=== PATIENT | female | born 1985 | race African-American/Black ===

== ENCOUNTER 2022-03-23 20:26 | Inpatient (IN) | payer SELFPAY ==
[~2022-03-23] VITALS: Ht 175.3 cm; Wt 100.0 kg
[2022-03-23] MEDS ORDERED: FAMOTIDINE (10MG/ML) 2ML VL IV ONE (21:00)
[2022-03-23] MEDS ORDERED: methylPREDNISolone SOD SUCC 125 MG/2 ML VL IV ONE (21:00)
[2022-03-23] MEDS ORDERED: diphenhdrAMINE HCL 50 MG/1 ML VL IV ONE (21:00)
[2022-03-23] MEDS ORDERED: EPINEPHrine HCL 1 MG/1 ML AMP IM ONE (22:15)
[2022-03-23 23:12] LABS: Basophils # (auto) 0 10 ^3/uL (0-0.2); Basophils % (auto) 0.3 % (0.0-2.0); Eosinophils # (auto) 0.1 10 ^3/uL (0-0.8); Eosinophils % (auto) 1.4 % (0.0-7.0); Hematocrit 38.1 % (36.0-46.0); Hemoglobin 12.7 g/dL (12.2-16.2); Lymphocytes # (auto) 0.8 10 ^3/uL (0.4-5.4); Lymphocytes % (auto) 14.4 % (10.0-50.0); Mean Corpuscular Hemoglobin 32.2 pg (28.0-32.0); Mean Corpuscular Hgb Conc. 33.4 g/dL (32.0-36.0); Mean Corpuscular Volume 96.5 fL (80.0-100.0); Monocytes # (auto) 0.3 10 ^3/uL (0-1.3); Monocytes % (auto) 4.9 % (0.0-12.0); Neutrophils # (auto) 4.5 10 ^3/uL (1.6-8.6); Red Blood Cells 3.94 10^6/uL (4.0-5.20); Red Cell Distribution Width 13.9 % (11.8-14.3); White Blood Cell 5.7 10^3/uL (4.4-10.8)
[2022-03-23 23:29] LABS: Albumin 3.3 g/dL (3.4-5.0); Calcium 8.7 mg/dL (8.5-10.1); Potassium 4.5 mmol/L (3.5-5.1)
[2022-03-23 23:37] LABS: BUN/Creatinine Ratio 19.2; Bilirubin, Total 0.2 mg/dL (0.2-1.0); Total Protein 7.4 g/dL (6.4-8.2)
[2022-03-24] MEDS ORDERED: DOCUSATE SOD 100 MG CAP PO PRN
[2022-03-24] MEDS ORDERED: ONDANSETRON HCL 4 MG/2 ML VIAL IV PRN
[2022-03-24] MEDS ORDERED: diphenhdrAMINE HCL 50 MG/1 ML VL IM PRN
[2022-03-24] MEDS ORDERED: HYDROcodone-ACET 5/325MG TAB PO PRN
[2022-03-24] MEDS ORDERED: ALUM & MAG HYDROX-SIMETH LIQ(MAALOX) 30 ML PO PRN
[2022-03-24] MEDS ORDERED: ACETAMINOPHEN 325 MG TAB PO PRN
[2022-03-24] MEDS ORDERED: LORazepam 0.5 MG TAB PO PRN
[2022-03-24] MEDS ORDERED: hydrALAZINE HCL 25 MG TAB PO PRN (05:45)
[2022-03-24 06:00] LABS: Basophils # (auto) 0 10 ^3/uL (0-0.2); Basophils % (auto) 0.1 % (0.0-2.0); Eosinophils # (auto) 0 10 ^3/uL (0-0.8); Hemoglobin 13.6 g/dL (12.2-16.2); Lymphocytes # (auto) 0.5 10 ^3/uL (0.4-5.4); Lymphocytes % (auto) 9.5 % (10.0-50.0); Mean Corpuscular Hemoglobin 32.7 pg (28.0-32.0); Mean Corpuscular Volume 96.1 fL (80.0-100.0); Monocytes # (auto) 0.1 10 ^3/uL (0-1.3); Monocytes % (auto) 1.2 % (0.0-12.0); Neutrophils # (auto) 4.6 10 ^3/uL (1.6-8.6); Neutrophils % (auto) 89.2 % (37.0-80.0); Red Blood Cells 4.16 10^6/uL (4.0-5.20); Red Cell Distribution Width 13.7 % (11.8-14.3); White Blood Cell 5.1 10^3/uL (4.4-10.8)
[2022-03-24 06:16] LABS: BUN/Creatinine Ratio 15.1; Calcium 9.1 mg/dL (8.5-10.1); Potassium 4.5 mmol/L (3.5-5.1)
[2022-03-24] MEDS ORDERED: METH4PAK PO (09:10)
[2022-03-24] MEDS ORDERED: AML5T PO (09:10)
[2022-03-24] MEDS ORDERED: amLODIPine BESYLATE 5 MG TAB PO ONE (09:15)
[2022-03-24] MEDS ORDERED: methylPREDNISolone SOD SUCC 40 MG/ML VL IV ONE (09:15)
[2022-03-24] MEDS ORDERED: FAMOTIDINE 20 MG TAB PO ONE (09:15)
[2022-03-24] MEDS ORDERED: diphenhdrAMINE HCL 50 MG/1 ML VL IM ONE (09:15)
[2022-03-24 10:00] VITALS: BP 150/81
[2022-03-24] MEDS ORDERED: hydrALAZINE HCL 25 MG TAB PO SCH (10:00)
== END 2022-03-24 13:26 | disposition home or self-care (01) | DRG 916 ==
LOC: ER 20:29 → TELE 23:57
PROVIDERS: ADMIT Hospitalist; ATTEND Internal Medicine
DX: T78.3XXA Angioneurotic edema, initial encounter (principal); E66.9 Obesity, unspecified; I10 Essential (primary) hypertension; J45.909 Unspecified asthma, uncomplicated; Z20.822 Contact with and (suspected) exposure to COVID-19; T46.4X5A Adverse effect of angiotensin-converting-enzyme inhibitors, initial encounter; Y92.89 Other specified places as the place of occurrence of the external cause; Z71.3 Dietary counseling and surveillance; Z68.32 Body mass index [BMI] 32.0-32.9, adult; Z79.899 Other long term (current) drug therapy
CPT/HCPCS: 36415; 80048; 80053; 83036; 84443; 85025; 87426; 96374; 96375; 96376; G0378; J3490

== ENCOUNTER 2022-08-12 11:00 | Emergency (ER) | payer MEDICAID, OTHER ==
[~2022-08-12] VITALS: Ht 177.8 cm; Wt 100.0 kg
[~2022-08-12 11:00] MED LIST: AML5T PO; METH4PAK PO
[2022-08-12] MEDS ORDERED: ONDANSETRON ODT 4 MG TAB PO ONE (12:30)
[2022-08-12] MEDS ORDERED: cefTRIAXone SOD 1,000 MG VL IM ONE (12:30)
[2022-08-12 12:34] VITALS: BP 142/102
[2022-08-12] MEDS ORDERED: ALBUTEROL SULF 2.5 MG/0.5ML(0.5%) NEB SOLN NEB ONE (14:00)
[2022-08-12] MEDS ORDERED: IPRATROPIUM BROM 0.5 MG/2.5ML INH SOL NEB ONE (14:00)
[2022-08-12] MEDS ORDERED: PRED20TA2 PO (14:12)
[2022-08-12] MEDS ORDERED: PROM1SOL4 PO (14:12)
[2022-08-12] MEDS ORDERED: AZIT500T66 PO (14:12)
== END 2022-08-12 14:27 | disposition home or self-care (01) ==
LOC: EDBD 11:00 → ER 11:00
DX: J03.90 Acute tonsillitis, unspecified (principal); F41.1 Generalized anxiety disorder; J45.998 Other asthma; F17.210 Nicotine dependence, cigarettes, uncomplicated
CPT/HCPCS: 71045; 94640; 96372; 99283; J0696; J7644; Q0162